=== PATIENT | female | born 1985 | race Asian ===

== ENCOUNTER 2018-04-24 05:00 | Emergency (ER) | payer OTHER ==
[~2018-04-24] VITALS: Ht 172.7 cm; Wt 100.2 kg
[2018-04-24 07:20] VITALS: BP 113/64; TEMP 98
== END 2018-04-24 07:20 | disposition home or self-care (01) ==
LOC: ED 05:00
DX: N89.8 Other specified noninflammatory disorders of vagina (principal); Z33.1 Pregnant state, incidental
CPT/HCPCS: 81000; 87490; 99283; J0696